=== PATIENT | female | born 1945 | race Two or more races ===

== ENCOUNTER → 2018-05-07 17:00 | Outpatient (CLI) | payer OTHER ==
[~2018-05-07 17:00] MED LIST: NORFLEX 30MG30 MG/ML IM; ZANAFLEX4 MG PO
== END | disposition home or self-care (01) ==
LOC: RAD 17:00
DX: M25.531 Pain in right wrist (principal)

== ENCOUNTER 2018-05-30 08:06 | Outpatient (CLI) | payer OTHER | END 2018-05-30 08:09 | disposition home or self-care (01) | LOC: SONOGRAMA 08:06 | DX: K57.30 Diverticulosis of large intestine without perforation or abscess without bleeding (principal); R16.0 Hepatomegaly, not elsewhere classified ==

== ENCOUNTER → 2018-08-13 | Outpatient (CLI) | payer OTHER | END | disposition home or self-care (01) | LOC: MAMO-SONO 11:38 | DX: Z12.31 Encounter for screening mammogram for malignant neoplasm of breast (principal); Z87.898 Personal history of other specified conditions; N64.89 Other specified disorders of breast ==

== ENCOUNTER 2019-04-22 14:02 | Outpatient (CLI) | payer OTHER ==
[~2019-04-22 14:02] MED LIST changes: +DICLOFENAC SOD100 GM TOP; +ZANAFLEX2 MG PO
== END 2019-04-22 14:18 | disposition home or self-care (01) ==
LOC: NUCLEAR 14:02
DX: M81.0 Age-related osteoporosis without current pathological fracture (principal)

== ENCOUNTER 2019-08-19 10:25 | Outpatient (CLI) | payer OTHER | END 2019-08-19 10:29 | disposition home or self-care (01) | LOC: NUCLEAR 10:25 | DX: G45.8 Other transient cerebral ischemic attacks and related syndromes (principal) ==

== ENCOUNTER → 2019-08-26 | Outpatient (CLI) | payer OTHER | END | disposition home or self-care (01) | LOC: RAD 15:48 | DX: M25.561 Pain in right knee (principal); M25.562 Pain in left knee ==

== ENCOUNTER 2019-09-18 14:32 | Outpatient (CLI) | payer OTHER | END 2019-09-18 14:35 | disposition home or self-care (01) | LOC: RAD 14:32 | DX: R51 Headache (principal); J32.8 Other chronic sinusitis ==

== ENCOUNTER → 2019-10-07 | Outpatient (CLI) | payer OTHER | END | disposition home or self-care (01) | LOC: TOM 13:30 | DX: J32.0 Chronic maxillary sinusitis (principal); J32.4 Chronic pansinusitis ==

== ENCOUNTER 2025-07-17 11:55 | Inpatient (IN) | payer OTHER ==
[~2025-07-17] VITALS: Ht 160 cm; Wt 59.0 kg
[2025-07-17 13:36] LABS: BASO % 0.9 % (0.1-1.2); EOS # 0.00 (0.04-0.54); EOS % 0.0 % (0.7-7.0); LYMPH # 4.75 (1.18-3.74); LYMPH % 20.8 % (19.3-53.1); MEAN PLATELET VOLUME 11.60 fl (9.4-12.4); MONO # 0.74 (0.24-0.82); MONO % 3.2 % (4.7-12.5); NEUT # 14.52 (1.56-6.13); NEUT % 63.5 % (34.0-71.1); RED CELL DISTRIBUTION WIDTH 17.1 % (11.6-14.4)
--- NOTE | 2025-07-17 13:37 | NUR ---
SE ORIENTA PACIENTE SOBRE TX MEDICO Y HERLINDA REFIERE ENTENDER Y ACEPTAR EL MISMO. SE PROCEDE A MARLEN MUESTRAS DE LAB. BAJO MEIDDAS ASEPTICAS. JESSENIA DE EDEMA Y ERITEMA. SE PROCEDE A REALIZAR EKG Y HERLINDA ES EVALUADO POR JAZMINE PRICE.
[2025-07-17 13:45] LABS: ERYTHROCYTE SEDIMENTATION RATE 38 mm/hr (0-30)
[2025-07-17 13:50] LABS: URINE APPEARANCE Clear; URINE BILIRRUBIN Small (NEGATIVE); URINE BLOOD Large; URINE COLOR Red; URINE KETONE Negative (NEGATIVE); URINE LEUKOCYTE Small; URINE NITRATE Negative; URINE UROBILINOGEN 0.2 E.U./dl
[2025-07-17 13:56] LABS: URINE BACTERIA 713.8 uL (0.0-1933); URINE CAST 4.53 uL (0.0-1.40); URINE EPITHELIAL CELLS 5.6 uL (0.0-38.8); URINE WBC 405.6 uL (0.0-23.2)
[2025-07-17 14:00] LABS: ALT/SGPT 43.0 U/L (12-78); AST/SGOT 48.0 U/L (15-37); BILIRUBIN TOTAL 0.43 mg/dL (0.3-1.2); BUN CREA RATIO 25.0 (7.0-25.0); CREATININE SERUM 1.29 mg/dL (0.55-1.02); GFR 39.66; GLOBULINA 5.0 G/DL (2.4-3.5); GLUCOSE FASTING 104.0 mg/dL (65-100); OSMOLALITY SERUM 288.0 MOSM/KG (275-295)
[2025-07-17 14:04] LABS: INR 1.04
[2025-07-17 14:14] LABS: URINE GLUCOSE 500 MG/DL (NEGATIVE); URINE PROTEIN 300 (NEGATIVE)
[2025-07-17] MEDS ORDERED: LEVALBUTEROL HCL 0.63 MG/3 ML SOLUTION IH SCH (14:15)
[2025-07-17] MEDS ORDERED: IPRATROPIUM BROMIDE 0.5 MG/2.5 ML AMPUL.NEB IH SCH (14:15)
[2025-07-17 14:58] LABS: COVID-19 AG NEGATIVE (NEGATIVE)
--- NOTE | 2025-07-17 15:39 | NUR ---
DRA PRICE ORDENA VERBALMENTE IRRIGAR SONDA URINARIA, SE LE ORIENTA A PACIENTE SOBRE NUEVO TRATAMIENTO MEDICO Y REFIERE ENTNEDER, SE IRRIGA SONDA URINARIA BAJO MEDIDAS ASEPTICAS. SE OBSERVA EGRESO MAS DAYNA (PACIENTE CON HEMATURIA QUIEN REFIERE QUE LA LASTIMARON CUANDO LE PASARON LA SONDA URINARIA EN LA OTRA INSTITUCION), SE LE NOTIFICA A DRA ROSAS ORDENA NO COLOCAR SONDA THREE WAY.
[2025-07-17] MEDS ORDERED: INSULIN LISPRO 1,000 UNIT/10 ML UNITS SUBCUTANEO PRN (23:15)
[2025-07-17] MEDS ORDERED: DEXTROSE 50 % IN WATER 0.5 G/ML DISP.SYRIN IV PRN (23:15)
[2025-07-17] MEDS ORDERED: 0.9 % SODIUM CHLORIDE 1,000 ML IV SCH (23:15)
[2025-07-17] MEDS ORDERED: GUAIFENESIN/DEXTROMETHORPHAN 1 TAB TABLET PO SCH (23:22)
[2025-07-17] MEDS ORDERED: AZITHROMYCIN 500 MG VIAL IV SCH (23:32)
[2025-07-17] MEDS ORDERED: CEFTRIAXONE SODIUM 2,000 MG in 0.9 % SODIUM CHLORIDE 100 ML IV SCH (23:33)
[2025-07-17] MEDS ORDERED: FAMOTIDINE/PF 20 MG in 0.9 % SODIUM CHLORIDE 100 ML IV SCH (23:33)
[2025-07-18] MEDS ORDERED: LEVALBUTEROL HCL 0.63 MG/3 ML SOLUTION IH ONE (01:09)
[2025-07-18] MEDS ORDERED: LEVALBUTEROL HCL 0.63 MG/3 ML SOLUTION IH SCH (02:00)
[2025-07-18] MEDS ORDERED: CEFTRIAXONE SODIUM 2,000 MG VIAL ONE (04:17)
[2025-07-18] MEDS ORDERED: AZITHROMYCIN 500 MG VIAL IV ONE ×2 (04:18→08:02)
[2025-07-18] MEDS ORDERED: FAMOTIDINE/PF 20 MG/2 ML VIAL ONE (04:18)
[2025-07-18 05:01] LABS: BASO % 0.3 % (0.1-1.2); EOS # 0.00 (0.04-0.54); EOS % 0.0 % (0.7-7.0); LYMPH # 3.38 (1.18-3.74); LYMPH % 24.8 % (19.3-53.1); MEAN PLATELET VOLUME 10.80 fl (9.4-12.4); MONO # 0.34 (0.24-0.82); MONO % 2.5 % (4.7-12.5); NEUT # 7.73 (1.56-6.13); NEUT % 56.8 % (34.0-71.1); RED CELL DISTRIBUTION WIDTH 16.6 % (11.6-14.4)
[2025-07-18 05:24] LABS: INR 1.01
[2025-07-18 05:25] LABS: BUN CREA RATIO 23.0 (7.0-25.0); CREATININE SERUM 1.07 mg/dL (0.55-1.02); GFR 49.22; GLUCOSE FASTING 88.0 mg/dL (65-100); OSMOLALITY SERUM 289.0 MOSM/KG (275-295)
[2025-07-18] MEDS ORDERED: LEVOTHYROXINE SODIUM 75 MCG TABLET PO SCH (06:00)
[2025-07-18] MEDS ORDERED: METOPROLOL SUCCINATE 25 MG TAB.SR.24H PO SCH (09:00)
[2025-07-18] MEDS ORDERED: DIGOXIN 0.125 MG TABLET PO SCH (09:00)
[2025-07-18 09:29] VITALS: BP 95/60; O2SAT 98
[2025-07-18] MEDS ORDERED: ROSUVASTATIN CALCIUM 10 MG TABLET PO SCH (17:00)
[2025-07-18] MEDS ORDERED: METHYLPREDNISOLONE SOD SUCC 40 MG VIAL IV SCH (18:46)
[2025-07-18 19:02] VITALS: BP 127/80; O2SAT 96
[2025-07-19 01:27] VITALS: BP 102/58; O2SAT 97
[2025-07-19] MEDS ORDERED: AZITHROMYCIN 500 MG VIAL IV ONE (08:48)
[2025-07-19] MEDS ORDERED: VANCOMYCIN HCL 5 MG/ML REDILUIDO IV SCH (09:00)
[2025-07-19 09:02] VITALS: BP 120/64; O2SAT 97
[2025-07-19 22:39] VITALS: BP 109/65
[2025-07-20 02:21] VITALS: BP 123/66; O2SAT 97
[2025-07-20 06:17] LABS: BASO % 0.8 % (0.1-1.2); EOS # 0.02 (0.04-0.54); EOS % 0.1 % (0.7-7.0); LYMPH # 1.54 (1.18-3.74); LYMPH % 7.6 % (19.3-53.1); MEAN PLATELET VOLUME 10.40 fl (9.4-12.4); MONO # 0.83 (0.24-0.82); MONO % 4.1 % (4.7-12.5); NEUT # 13.39 (1.56-6.13); NEUT % 65.9 % (34.0-71.1); RED CELL DISTRIBUTION WIDTH 16.5 % (11.6-14.4)
[2025-07-20] MEDS ORDERED: AZITHROMYCIN 500 MG VIAL IV ONE (07:49)
[2025-07-20 08:01] LABS: BAND MAN 5.0 %; LYMPHOCYTE MAN 5.0 %; MONOCYTE MAN 6.0 %
[2025-07-20 08:02] LABS: METAMYELOCYTE 4.0 %; MYELOCYTE 4.0 %
[2025-07-20 08:03] LABS: NEUTROPHILS MAN 68.0 %
[2025-07-20 08:04] LABS: BLAST MAN 2.0 %
[2025-07-20 08:38] VITALS: BP 115/66; O2SAT 99
[2025-07-20 20:29] VITALS: BP 136/67
[2025-07-21 01:28] VITALS: BP 114/65; O2SAT 97
[2025-07-21] MEDS ORDERED: AZITHROMYCIN 500 MG VIAL IV ONE (08:51)
[2025-07-21 11:28] VITALS: BP 129/72; O2SAT 100
[2025-07-21 19:57] VITALS: BP 139/76
[2025-07-21] MEDS ORDERED: PANTOPRAZOLE SODIUM 40 MG TABLET.DR PO NR (20:00)
[2025-07-22 03:10] VITALS: BP 139/70; O2SAT 97
[2025-07-22 07:02] LABS: BASO % 0.2 % (0.1-1.2); EOS # 0.32 (0.04-0.54); EOS % 0.4 % (0.7-7.0); LYMPH # 3.71 (1.18-3.74); LYMPH % 4.7 % (19.3-53.1); MEAN PLATELET VOLUME 9.90 fl (9.4-12.4); MONO # 4.21 (0.24-0.82); MONO % 5.4 % (4.7-12.5); NEUT # 42.97 (1.56-6.13); NEUT % 55.0 % (34.0-71.1); RED CELL DISTRIBUTION WIDTH 17.5 % (11.6-14.4)
[2025-07-22 07:33] LABS: BUN CREA RATIO 22.0 (7.0-25.0); CREATININE SERUM 1.18 mg/dL (0.55-1.02); GFR 43.96; GLUCOSE FASTING 126.0 mg/dL (65-100); OSMOLALITY SERUM 291.0 MOSM/KG (275-295)
[2025-07-22 08:00] LABS: BAND MAN 14.0 %; LYMPHOCYTE MAN 3.0 %; METAMYELOCYTE 10.0 %; MONOCYTE MAN 2.0 %; MYELOCYTE 9.0 %; NEUTROPHILS MAN 61.0 %
[2025-07-22] MEDS ORDERED: AZITHROMYCIN 500 MG VIAL IV ONE (08:19)
[2025-07-22] MEDS ORDERED: PANTOPRAZOLE SODIUM 40 MG TABLET.DR PO SCH (09:00)
[2025-07-22] MEDS ORDERED: METHYLPREDNISOLONE SOD SUCC 40 MG VIAL IV SCH (09:00)
[2025-07-22 09:09] VITALS: BP 125/69; O2SAT 98
[2025-07-22] MEDS ORDERED: MEROPENEM 500 MG/VIAL VIAL IV SCH (18:00)
[2025-07-22 19:16] VITALS: BP 135/73; O2SAT 100
[2025-07-23 03:38] VITALS: BP 120/73; O2SAT 98
[2025-07-23] MEDS ORDERED: AZITHROMYCIN 500 MG VIAL IV ONE (07:53)
[2025-07-23 09:18] VITALS: BP 147/80; O2SAT 96
[2025-07-23 11:56] LABS: BASO % 0.3 % (0.1-1.2); EOS # 0.01 (0.04-0.54); EOS % 0.0 % (0.7-7.0); LYMPH # 2.21 (1.18-3.74); LYMPH % 5.4 % (19.3-53.1); MEAN PLATELET VOLUME 10.30 fl (9.4-12.4); MONO # 3.31 (0.24-0.82); MONO % 8.1 % (4.7-12.5); NEUT # 19.30 (1.56-6.13); NEUT % 47.5 % (34.0-71.1); RED CELL DISTRIBUTION WIDTH 18.4 % (11.6-14.4)
[2025-07-23 13:16] LABS: BAND MAN 5.0 %; LYMPHOCYTE MAN 5.0 %; METAMYELOCYTE 10.0 %; MONOCYTE MAN 9.0 %; MYELOCYTE 15.0 %; NEUTROPHILS MAN 56.0 %
[2025-07-23] MEDS ORDERED: NYSTATIN 5 ML BLIST.PACK PO SCH (14:00)
[2025-07-23] MEDS ORDERED: MAGNESIUM HYDROXIDE 30 ML BLIST.PACK PO NR (14:45)
[2025-07-23] MEDS ORDERED: LACTULOSE 20 G/30 ML BLIST.PACK PO NR (14:45)
[2025-07-23] MEDS ORDERED: MINERAL OIL 30 ML BLIST.PACK PO NR (14:45)
[2025-07-23] MEDS ORDERED: CLOTRIMAZOLE 10 MG TROCHE MM SCH (17:00)
[2025-07-23 18:50] VITALS: BP 150/70; O2SAT 96
[2025-07-24 03:15] VITALS: BP 164/81; O2SAT 100
[2025-07-24] MEDS ORDERED: METOPROLOL SUCCINATE 100 MG TAB.SR.24H PO SCH (09:00)
[2025-07-24 09:05] VITALS: BP 150/73; BP 150/773; O2SAT 99
== END 2025-07-24 14:44 | disposition home or self-care (01) | DRG 195 ==
LOC: ER 11:55 → MEDI 23:59 → SEC-K 23:59 → MEDI 07-18 03:27
PROVIDERS: Internal Medicine; Physician Assistant Medical; ADMIT Student in an Organized Health Care Education/Training Program; ATTEND Student in an Organized Health Care Education/Training Program
PROC: BB24ZZZ Computerized Tomography (CT Scan) of Bilateral Lungs (ICD-10-PCS; principal; 2025-07-17)
PROC: 3E0F7GC Introduction of Other Therapeutic Substance into Respiratory Tract, Via Natural or Artificial Opening (ICD-10-PCS; 2025-07-17)
PROC: 30233N1 Transfusion of Nonautologous Red Blood Cells into Peripheral Vein, Percutaneous Approach (ICD-10-PCS; 2025-07-23)
DX: J10.1 Influenza due to other identified influenza virus with other respiratory manifestations (principal); D69.6 Thrombocytopenia, unspecified; I10 Essential (primary) hypertension; Z72.0 Tobacco use; D72.828 Other elevated white blood cell count